=== PATIENT | female | born 1995 | race Caucasian/White ===

== ENCOUNTER 2018-12-02 20:49 | Emergency (ER) | payer OTHER ==
[~2018-12-02] VITALS: Ht 162.6 cm; Wt 51.4 kg
[~2018-12-02 20:49] MED LIST: MAG355OR14 PO; ONDA8TAB16 SL
--- NOTE | 2018-12-02 21:06 | NUR ---
NO ANSWER X1 @1789 BATHROOM PER FAMILY
--- NOTE | 2018-12-02 21:28 | NUR ---
PT AMBULATED BACK TO ROOM 30 WITHOUT DIFFICULTY. ED PATIENT ACCOUNT SPECIALIST AT BS.
--- NOTE | 2018-12-02 21:36 | NUR ---
PT REPORTS FEVER AT HOME SINCE MONDAY, T MAX 100F. DIARRHEA SINCE MON NIGHT.
--- NOTE | 2018-12-02 21:44 | NUR ---
PT AMBULATED TO BR WITHOUT DIFFICULTY. INSTRUCTED ON CLEAN CATCH URINE SAMPLE. SISTER AT BS.
[2018-12-02] MEDS ORDERED: SODIUM CHLORIDE FLUSH 10ML SYR IVF ONE (22:00)
[2018-12-02 22:30] LABS: BASOPHILS # (AUTO) 0.01 x10^3/uL (0-0.1); BASOPHILS % (AUTO) 0 % (0-1); EOSINOPHILS # (AUTO) 0.03 x10^3/uL (0-0.4); EOSINOPHILS % (AUTO) 1 % (1-7); LYMPHOCYTES % (AUTO) 23 % (22-44); MD NO; MEAN CORPUSCULAR HEMOGLOBIN 31.6 pg (27.0-34.8); MEAN CORPUSCULAR HGB CONC 34.3 g/dL (32.4-35.8); MEAN CORPUSCULAR VOLUME 92.3 fL (80-100); MEAN PLATELET VOLUME 7.2 fL (7.4-10.4); MONOCYTES # (AUTO) 0.44 x10^3/uL (0.2-0.8); MONOCYTES % (AUTO) 13 % (2-9); NEUTROPHILS # (AUTO) 2.17 x10^3/uL (1.8-6.8); NEUTROPHILS % (AUTO) 63 % (42-75); PLATELET COUNT 171 x10^3/uL (130-400); RED BLOOD COUNT 4.44 x10^6/uL (3.82-5.3)
[2018-12-02 22:40] LABS: ALANINE AMINOTRANSFERASE 21 U/L (12-78); ALBUMIN 3.5 g/dL (3.4-5.0); ANION GAP 5 mmol/L (5-15); CALCIUM 8.1 mg/dL (8.5-10.1); CHLORIDE 108 mmol/L (98-107); CREATININE 0.64 mg/dL (0.55-1.02)
[2018-12-02 22:41] LABS: MICROSCOPIC AUTO
[2018-12-02 22:43] LABS: CULTURE INDICATED? NO
[2018-12-02 22:45] LABS: ALKALINE PHOSPHATASE 69 U/L (45-117); BILIRUBIN,TOTAL 0.2 mg/dL (0.2-1.0); TOTAL PROTEIN 6.9 g/dL (6.4-8.2)
[2018-12-02 22:57] VITALS: BP 100/57
--- NOTE | 2018-12-02 22:58 | NUR ---
PT CALM, LYING IN GURNEY, DENIES NEEDS AT THIS TIME.
--- NOTE | 2018-12-02 23:21 | NUR ---
ERP AT BS FOR RE-EVAL.
--- NOTE | 2018-12-02 23:43 | NUR ---
D/C INSTRUCTIONS & F/U APPT RV'WD WITH PT, SHE VERBALIZES UNDERSTANDING. INSTRUCTED TO RETURN IF SYMPTOMS NOT IMPROVING. AMBULATED OUT OF ED WITH SISTER WITHOUT DIFFICULTY.
== END 2018-12-02 23:45 | disposition home or self-care (01) ==
LOC: ED 22:22
DX: K52.9 Noninfective gastroenteritis and colitis, unspecified (principal)
CPT/HCPCS: 36415; 80053; 81001; 84703; 85025; 99283